=== PATIENT | female | born 1950 | race Caucasian/White ===

== ENCOUNTER → 2016-03-30 | Outpatient (CLI) | payer MEDICARE ==
[~2016-03-30] MED LIST: ASPIRIN81 M1 PO; FISH OIL CONC1000 M2 PO; FISH OIL500 M1 PO; MULTIVITAMIN FO1 CAP; NORVASC5 MG; PRILOSEC20 MG; RESTASIS 0.4 M0.4 M1 OP; RESTASIS0.05% OP; SIMVASTATIN40 MG PO; SYNTHROID,LEV125 MCG PO; SYNTHROID0.125 MG; Septra Ds 800 M1 TAB PO; Synthroid,Lev100 MCG PO
== END | disposition home or self-care (01) ==
LOC: US 07:10
DX: K76.0 Fatty (change of) liver, not elsewhere classified (principal); R10.11 Right upper quadrant pain; R11.0 Nausea; R07.9 Chest pain, unspecified

== ENCOUNTER 2023-01-11 13:06 | Emergency (ER) | payer OTHER, MEDICARE ==
[~2023-01-11] VITALS: Ht 157.4 cm; Wt 74.8 kg
[2023-01-11] MEDS ORDERED: CYCLOBENZAPRINE5 M3 PO (15:36)
[2023-01-11] MEDS ORDERED: TRAMADOL HCL50 MG PO (15:38)
== END 2023-01-11 16:02 | disposition home or self-care (01) ==
LOC: ED 13:06
DX: S42.155A Nondisplaced fracture of neck of scapula, left shoulder, initial encounter for closed fracture (principal); K21.9 Gastro-esophageal reflux disease without esophagitis; I10 Essential (primary) hypertension; E78.00 Pure hypercholesterolemia, unspecified; Z88.5 Allergy status to narcotic agent; Z90.89 Acquired absence of other organs; Z98.890 Other specified postprocedural states; V89.2XXA Person injured in unspecified motor-vehicle accident, traffic, initial encounter; Y93.89 Activity, other specified; Y92.410 Unspecified street and highway as the place of occurrence of the external cause; Y99.8 Other external cause status

== ENCOUNTER 2023-08-20 22:22 | Emergency (ER) | payer MEDICARE ==
[~2023-08-20] VITALS: Ht 157.5 cm; Wt 68.0 kg
[~2023-08-20 22:22] MED LIST changes: +CYCLOBENZAPRINE5 M3 PO; +TRAMADOL HCL50 MG PO
[2023-08-20 23:04] LABS: BASO % 0.7 % (0.0-1.0); EOS # 0.6 10*3/uL (0.0-0.4); EOS % 13.6 % (1.0-4.0); HEMATOCRIT 36.2 % (37.0-47.0); LYMPH % 45.3 % (27.0-41.0); MEAN CELL VOLUME 88.5 fl (81.0-99.0); MEAN CORPUSCULAR HGB 30.6 pg (27.0-31.0); MEAN CORPUSCULAR HGB CONC 34.5 g/dl (33.0-37.0); MEAN PLATELET VOLUME 9.9 fl (9.6-12.3); MONO # 0.6 10*3/uL (0.1-1.0); MONO % 14.5 % (3.0-9.0); NEUT # 1.1 10*3/uL (2.3-7.9); NEUT % 25.7 % (47.0-73.0); PLATELET COUNT AUTOMATED 177 10*3/uL (130-400); RED BLOOD COUNT 4.09 10*6/uL (4.10-5.10); RED CELL DISTRI WIDTH 12.8 % (0-14.5); WHITE BLOOD COUNT 4.3 10*3/uL (4.8-10.8)
[2023-08-20 23:20] LABS: ACT PARTIAL THROMBO TIME 25.6 SECONDS (20.0-32.1)
[2023-08-20 23:27] LABS: ALKALINE PHOSPHATASE 39 U/L (46-116); BUN 11 mg/dl (9-23); CHLORIDE 99 mmol/L (98-107); POTASSIUM 3.6 mmol/L (3.4-5.1); SGPT/ALT 34 U/L (5-49); TOTAL PROTEIN 6.6 gm/dL (6.0-8.0)
[2023-08-21] MEDS ORDERED: SODIUM CHLORIDE 0.9% 1,000 ML IV ONE (00:10)
[2023-08-21 02:41] LABS: BILIRUBIN Negative (Negative); BLOOD Negative (Negative); CLARITY Clear (Clear); COLOR Yellow (Yellow); GLUCOSE Negative (Negative); KETONE Negative (Negative); LEUKO ESTERASE Trace (Negative); NITRITE Negative (Negative); PH 5.5 (4.5-8.0); UROBILINOGEN 0.2 E.U./dl (0.0-1.0)
[2023-08-21] MEDS ORDERED: IOHEXOL 350 MG/ML 100 ML VIAL IV ONE (02:45)
[2023-08-21] MEDS ORDERED: SODIUM CHLORIDE 0.9% 100 ML BAG IV ONE (02:45)
[2023-08-21 05:30] VITALS: BP 111/67
[2023-08-21] MEDS ORDERED: ACETAMINOPHEN 325 MG TAB PO ONE (05:35)
== END 2023-08-21 06:11 | disposition home or self-care (01) ==
LOC: ED 22:22
PROVIDERS: Nurse Practitioner
DX: R07.89 Other chest pain (principal); E87.20 Acidosis, unspecified; M25.512 Pain in left shoulder; I12.9 Hypertensive chronic kidney disease with stage 1 through stage 4 chronic kidney disease, or unspecified chronic kidney disease; N18.31 Chronic kidney disease, stage 3a; E78.00 Pure hypercholesterolemia, unspecified; K21.9 Gastro-esophageal reflux disease without esophagitis; Z88.5 Allergy status to narcotic agent; Z90.89 Acquired absence of other organs; Z98.890 Other specified postprocedural states